=== PATIENT | female | born 1960 | race Caucasian/White ===

== ENCOUNTER 2023-12-22 06:00 | Outpatient (CLI) | payer MEDICAID, SELFPAY | END 2023-12-22 23:59 | disposition home or self-care (01) | LOC: SPT 12-23 11:35 | PROVIDERS: PCP Family Medicine; Visit Provider Student in an Organized Health Care Education/Training Program | DX: Z46.89 Encounter for fitting and adjustment of other specified devices (principal); M17.0 Bilateral primary osteoarthritis of knee | CPT/HCPCS: L1851; L1852 ==

== ENCOUNTER → 2023-12-22 12:58 | Outpatient (BNVA) | payer MEDICAID, SELFPAY | PROVIDERS: PCP Family Medicine; Visit Provider Student in an Organized Health Care Education/Training Program | DX: M17.0 Bilateral primary osteoarthritis of knee | CPT/HCPCS: 20610; 73560; 73565; 99204; J3301 ==

== ENCOUNTER 2024-01-25 08:30 | Outpatient (CLI) | payer MEDICAID, SELFPAY ==
--- NOTE | 2024-01-25 08:07 | USCV_ITS ---
Kian Renea Age: 64 Gender: F : 1960 Exam Date: 01/25/2024 08:17 Ordering Phys: Yogesh Rojas MD Technologist: CT Exam Location: [facility] [place] Indication: Risk Factors: Previous Vascular Surgery: Right Brachial BP: / Left Brachial BP: / Right Left Velocity (cm/s) Spectral Plaque Velocity (cm/s) Spectral Plaque Syst/Diast Broadening Syst/Diast Broadening 64.20/ 14.70 Prox CCA 102.70/ 25.50 83.30/ 18.40 Mid CCA 95.30 / 23.10 61.30/ 20.70 Distal CCA 65.10 / 19.80 74.90/ 27.40 Prox ICA 97.20 / 26.90 75.40/ 27.60 Mid ICA 58.80 / 23.90 71.30/ 27.10 Distal ICA 60.40 / 23.60 49.30 ECA 83.30 1.20 ICA/CCA 1.50 Antegrade Vertebral Antegrade 39.00/ 11.70 cm/s 48.20/ 16.50 cm/s Bi Subclavian Bi 86.70 59.80 CONCLUSIONS Intimal thickening in the common carotid arteries and internal carotid arteries bilaterally. Right ICA stenosis <50%. Moderate atheromatous plaque right carotid bulb/ICA. Left ICA stenosis <50%. Moderate atheromatous plaque left carotid bulb/ICA. Normal antegrade Doppler flow noted in the right vertebral artery. Normal antegrade Doppler flow noted in the left vertebral artery. Sergio Alvarado MD (Electronically Signed) Final Date: 25 January 2024 11:24 S
== END 2024-01-25 08:31 | disposition home or self-care (01) ==
PROVIDERS: PCP Family Medicine; Visit Provider Family Medicine
DX: I65.23 Occlusion and stenosis of bilateral carotid arteries (principal); I77.89 Other specified disorders of arteries and arterioles
CPT/HCPCS: 93880

== ENCOUNTER → 2024-08-07 08:45 | Outpatient (BNVA) | payer MEDICAID, SELFPAY | PROVIDERS: PCP Family Medicine; Visit Provider Student in an Organized Health Care Education/Training Program | DX: M17.0 Bilateral primary osteoarthritis of knee (principal) | CPT/HCPCS: 99213 ==

== ENCOUNTER 2024-09-16 11:48 | Emergency (ER) | payer MEDICARE, MEDICAID, SELFPAY ==
[2024-09-16] VITALS (14 sets, daily range): BP systolic 153–188; BP diastolic 86–104; PULSE 77–100; RESP 18–22; TEMP 36.7; O2SAT 89–99
--- NOTE | 2024-09-16 11:58 | XRR_ITS ---
PROCEDURE INFORMATION: Exam: XR Chest Exam date and time: 09/16/2024 12:22 PM Age: 64 years old Clinical indication: Cough TECHNIQUE: Imaging protocol: Radiologic exam of the chest. Views: 1 view. COMPARISON: No relevant prior studies available. FINDINGS: Lungs: Unremarkable. No consolidation. Pleural spaces: Unremarkable. No pleural effusion. No pneumothorax. Heart/Mediastinum: Unremarkable. No cardiomegaly. Bones/joints: Unremarkable. XR/XR chest 1V portable [id number] IMPRESSION: No acute cardiopulmonary process.
--- NOTE | 2024-09-16 12:00 | CTR_ITS ---
PROCEDURE INFORMATION: Exam: CT Head Without Contrast Exam date and time: 09/16/2024 11:00 AM Age: 64 years old Clinical indication: Stroke-like symptoms; Drowsines/somnolence and speech disturbance; Additional info: Symptoms of acute stroke TECHNIQUE: Imaging protocol: Computed tomography of the head without contrast. Radiation optimization: All CT scans at this facility use at least one of these dose optimization techniques: automated exposure control; mA and/or kV adjustment per patient size (includes targeted exams where dose is matched to clinical indication); or iterative reconstruction. Other technique: STROKE PROTOCOL was implemented. COMPARISON: No relevant prior studies available. RADIATION DOSE METRICS: Total DLP (mGy-cm): 802.08 FINDINGS: Brain: Mineralization of bilateral basal ganglia, age-related. No recent infarct, intracranial bleed or mass effect. Cerebral ventricles: No ventriculomegaly. Pituitary gland and sella: There is a normal empty pituitary sella. Paranasal sinuses: Visualized sinuses are unremarkable. No fluid levels. Mastoid air cells: Visualized mastoid air cells are well aerated. Orbital cavities: Post bilateral cataract surgery. Bones: Unremarkable. No acute fracture. Soft tissues: Unremarkable. CT/CT head thrombolytic [id number] IMPRESSION: No large territorial infarct or intracranial bleed. ASSESSMENT: ASPECTS ([place] Stroke Program Early CT Score) is 10.
--- NOTE | 2024-09-16 12:01 | PC.PHAR ---
Pt is from [facility]
[2024-09-16 12:23] LABS: Basophils % 0.3 %; Eosinophils # 0.1 10^3/uL (0.0-0.8); Eosinophils % 1.7 %; Hematocrit 38.9 % (36-47); Lymphocytes % 16.4 %; Mean Corpuscular HGB Conc 33.7 g/dL (30-55); Monocytes # 0.4 10^3/uL (0.2-0.9); Monocytes % 7.3 %; Neutrophils # 4.47 10^3/uL (1.8-7.7); Neutrophils % 74.1 %; Nucleated Red Blood Cells % 0 %; Platelet Count 206 10^3/cmm (157-399); Red Blood Count 3.97 10^6/uL (3.85-5.65); Red Cell Distribution Width 12.3 % (12.1-15.1); White Blood Count 6.03 10^3/uL (3.29-11.43)
[2024-09-16 12:25] LABS: Glucose Point of Care 90 mg/dL (70-110)
[2024-09-16 12:35] LABS: INR 0.77 (0.8-1.2)
[2024-09-16 12:36] LABS: Partial Thromboplastin Time 28.2 SECONDS (23.9-36.7)
--- NOTE | 2024-09-16 12:37 | ECG_ITS ---
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
[2024-09-16 12:39] LABS: Alanine Aminotransferase 20 U/L (0-33); Albumin Level 4.4 g/dL (3.5-5.2); Alkaline Phosphatase 87 U/L (35-105); Anion Gap 14.4 (5-19); Aspartate Amino Transferase 26 U/L (0-32); Blood Urea Nitrogen 17 mg/dL (8-23); Calcium 9.3 mg/dL (8.5-10.5); Carbon Dioxide 26 mmol/L (22-29); Chloride 103 mmol/L (98-107); Creatinine Clr Calc Pharmacy 66.8883; Globulin 2.6 g/dL (1.3-4.6); Glomerular Filtration Rate 55.8 mL/min (90-130); Glucose 83 mg/dL (65-115); Osmolality Calculated 289 mOsm/kg (285-295); Potassium 4.4 mmol/L (3.5-5.1); Sodium 139 mmol/L (136-145); Total Bilirubin 0.2 mg/dL (0.15-1.2)
[2024-09-16 12:40] LABS: Alcohol Level < 10 mg/dL (0-10)
--- NOTE | 2024-09-16 12:40 | W.ED.NEUROSD ---
HPI - Neuro Symptoms/Deficit General: Chief Complaint: Neuro Symptoms/Deficit Stated Complaint: stroke like symptoms at [facility] Time Seen by Provider: 09/16/24 11:50 History of Present Illness: This patient is a 64 year old presenting by EMS from a alf for stroke like symptoms. EMS was told that her symptoms started at 10:20 by the [facility] staff - but the patient says that she noted some slurred speech when she awoke this morning at 10 minutes after 6. She is very hungry - constantly asking for lunch and a soda. She says that she missed lunch and breakfast today. She denies headache, visual changes, trouble swallowing, chest pain, shortness of breath, fever. She admits to a dry cough because of being a smoker. She denies urinary symptoms or GI symptoms. She does seem somewhat confused and at times seems to have trouble understanding my questions. She is complaining of knee pain but it appears that is a chronic issue and she admits that it is unchanged today. Related Data Home Medications ?Medication ?Instructions ?Recorded ?Confirmed acetaminophen 325 mg capsule 325 mg PO QID PRN pain or fever 12/22/23 09/17/24 amitriptyline 50 mg tablet 50 mg PO BEDTIME 12/22/23 09/17/24 aspirin 81 mg tablet,delayed 81 mg PO DAILY 12/22/23 09/17/24 release (Adult Aspirin Regimen) atorvastatin 80 mg tablet 80 mg PO BEDTIME 12/22/23 09/17/24 buspirone 10 mg tablet 10 mg PO TID 08/07/24 09/17/24 clonazepam 0.5 mg tablet 0.5 mg PO QAM 08/07/24 09/17/24 diclofenac sodium 1 % topical gel 2 g topical Q6H PRN Pain 08/07/24 09/17/24 (Arthritis Pain (diclofenac)) docusate sodium 100 mg capsule 100 mg PO QAM 08/07/24 09/17/24 doxazosin 1 mg tablet 1 mg PO BEDTIME 08/07/24 09/17/24 fluticasone furoate 100 1 inh inhalation DAILY 08/07/24 09/17/24 mcg-vilanterol 25 mcg/dose inhalation powder (Breo Ellipta) gabapentin 600 mg tablet 600 mg PO TID 08/07/24 09/17/24 ibuprofen 800 mg tablet 800 mg PO TID 08/07/24 09/17/24 ipratropium bromide 17 2 puff inhalation BID 08/07/24 09/17/24 mcg/actuation HFA aerosol inhaler (Atrovent HFA) lamotrigine 100 mg tablet 100 mg PO QAM 08/07/24 09/17/24 magnesium hydroxide 400 mg/5 mL 30 ml PO BID PRN Constipation 08/07/24 09/17/24 oral suspension (Milk of Magnesia) melatonin 10 mg capsule 10 mg PO BEDTIME 08/07/24 09/17/24 paliperidone palm (3 month) 546 546 mg IM .[id number] 08/07/24 09/17/24 mg/1.75 mL intramuscular syringe (Invega Trinza) pantoprazole 40 mg granules 40 mg PO QAM 08/07/24 09/17/24 delayed-release for susp in packet (Protonix) cibwbqkd-aur-Ev-FA 1 mg 1 tab PO QAM 08/07/24 09/17/24 tablet sodium chloride 1,000 mg soluble 1,000 mg PO BID 08/07/24 09/17/24 tablet tizanidine 4 mg capsule (Zanaflex) 4 mg PO BID PRN Pain 08/07/24 09/17/24 triamcinolone acetonide 0.1 % 1 applic topical BID PRN eczema 08/07/24 09/17/24 topical ointment aluminum-mag hydroxide-simethicone 30 ml PO Q8H PRN indigestion/upset 09/16/24 09/17/24 400 mg-400 mg-40 mg/5 mL oral susp stomach (Mylanta Maximum Strength) menthol 2 % topical gel (Blue Gel) 1 applic topical Q6H PRN Pain 09/16/24 09/17/24 naloxone 1 mg/mL injection syringe 2 mg IM PRN PRN Opioid Overdose 09/16/24 09/17/24 sertraline 100 mg tablet 200 mg PO DAILY 09/16/24 09/17/24 Previous Rx's ?Medication ?Instructions ?Recorded 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 12/22/23 BRACE 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 12/22/23 BRACEDER aspirin 325 mg tablet 325 mg PO DAILY CV risk #30 tabs 09/16/24 Allergies Allergy/AdvReac Type Severity Reaction Status Date / Time acetaminophen (From Tylenol) Allergy unknowm Verified 09/17/24 08:09 codiene Allergy unknown Uncoded 09/17/24 08:09 geodon Allergy unknown Uncoded 09/17/24 08:09 [facility] ED PFSH: Social History Smoking and tobacco/nicotine status: current every day tobacco/nicotine user Marital status: NIH stroke score NIHSS: Level Of Consciousness - 1a: 0 Level Of Consciousness Questions - 1b: Both Correct Level Of Consciousness Commands - 1c: Both Correct Best Gaze - 2: Normal Visual Sams - 3: No Visual Loss Facial Palsy - 4: Normal Motor Arm Right - 5: No Drift Motor Arm Left - 5: No Drift Motor Leg Right - 6: No Drift Motor Leg Left - 6: No Drift Limb Ataxia - 7: Absent Sensory - 8: Normal Best Language - 9: No Aphasia Dysarthia - 10: Mild/Moderate Dysarthia Extinction And Inattention - 11: 0 Score: Total Score: 1 Physical Exam Const: COMMON NORMALS: no acute distress, patient oriented x3, no limitations and alert GENERAL APPEARANCE: cooperative and comfortable HENMT: HEAD & SCALP: normal to inspection FACE & SINUS: normal facial exam Eye: GENERAL EYE: appearance normal, both eyes and all related structures Neck/C-Spine: COMMON NORMALS: supple, no meningeal signs and no JVD Chest: COMMONS NORMALS: normal inspection of the chest Resp: COMMON NORMALS: normal respiratory effort, No use of accessory muscles and clear to auscultation bilaterally AUSCULTATION: clear to auscultation bilaterally Cardio: COMMON NORMALS: no JVD, regular rate, regular rhythm and No murmurs present (Cardio) RATE: regular rate RHYTHM: regular rhythm GI: COMMON NORMALS: Normal to inspection, nondistended, normoactive bowel sounds present, Soft to palpation and non-tender INSPECTION: Yes normal to inspection AUSCULTATION: Yes normoactive bowel sounds PALPATION: Yes Soft to palpation Back/Pelvis: COMMON NORMALS: thoracic and lumbar spine normal to inspection Extremity: COMMON NORMALS: normal to inspection Neuro: COMMON NORMALS: patient oriented x3, moves all extremities, no focal motor deficits and no sensory deficits noted SENSORIUM/ORIENTATION: Yes alert MENINGEAL SIGNS: Yes no meningeal signs Psych: COMMON NORMALS: mental status grossly normal, cooperative and normal affect Skin: COMMON NORMALS: no rashes or lesions noted and turgor normal GENERAL SKIN EXAM: no rashes or lesions noted and turgor normal Course Vital Signs: Vital signs: Vital Signs Temperature 98.0 F 09/16/24 11:59 Pulse Rate 98 09/16/24 16:52 Respiratory Rate 18 09/16/24 14:00 Blood Pressure 153/90 09/16/24 16:52 Pulse Oximetry 91 09/16/24 16:52 Oxygen Delivery Me thod Room Air 09/16/24 11:59 MDM - Neuro Symptoms/Deficit Medical Decision Making NIHSS of 1 for slurred speech. She seems a bit confused at times, but is able to answer questions and follow commands. A stroke alert was called - but given the low NIHSS and uncertain onset time - she is not a good candidate for TNK or TPA. The patient soon decided that she wanted to go home and was up and walking around the ED without difficulty. I spoke on the phone with her guardian who agreed that she should stay for a work up. The patient was noted to have a UTI. It is possible that she had a TIA but she does not wish to stay in the hospital and I think she can get an outpatient work up for TIA. She was increased to a full dose of aspirin daily and started on macrobid for her UTI. Lab Data 09/16/24 12:18 09/16/24 12:18 Radiology Impressions Chest X-Ray 09/16/24 11:58 IMPRESSION: No acute cardiopulmonary process. Head CT 09/16/24 12:00 IMPRESSION: No large territorial infarct or intracranial bleed. ASSESSMENT: ASPECTS ([place] Stroke Program Early CT Score) is 10. ADDENDUM: 09/16/24 1226 THIS REPORT CONTAINS FINDINGS THAT MAY BE CRITICAL TO PATIENT CARE. As of 12:25 PM CDT on 09/16/2024 operations center staff confirmed that CRISPIN CABRERA has received the exam report and indicated that no conference call was necessary to discuss the exam findings. Laboratory Results WBC 6.03 10^3/uL (3.29-11.43) 09/16/24 12:18 RBC 3.97 10^6/uL (3.85-5.65) 09/16/24 12:18 Hgb 13.10 g/dL (11.27-16.99) 09/16/24 12:18 Hct 38.9 % (36-47) 09/16/24 12:18 MCV 98.0 fl (85-98) 09/16/24 12:18 MCH 33.0 pg (27-33) 09/16/24 12:18 MCHC 33.7 g/dL (30-55) 09/16/24 12:18 RDW 12.3 % (12.1-15.1) 09/16/24 12:18 Plt Count 206 10^3/cmm (157-399) 09/16/24 12:18 MPV 9.0 fL (7.4-10.4) 09/16/24 12:18 Neut % (Auto) 74.1 % 09/16/24 12:18 Lymph % (Auto) 16.4 % 09/16/24 12:18 [place]uthrie % (Auto) 7.3 % 09/16/24 12:18 Eos % (Auto) 1.7 % 09/16/24 12:18 Baso % (Auto) 0.3 % 09/16/24 12:18 Neut # (Auto) 4.47 10^3/uL (1.8-7.7) 09/16/24 12:18 Lymph # (Auto) 1.0 10^3/uL (0.8-4.8) 09/16/24 12:18 Guthrie # (Auto) 0.4 10^3/uL (0.2-0.9) 09/16/24 12:18 Eos # (Auto) 0.1 10^3/uL (0.0-0.8) 09/16/24 12:18 Baso # (Auto) 0.0 10^3/uL (0.0-0.1) 09/16/24 12:18 Nucleated RBC % (auto) 0 % 09/16/24 12:18 Nucleated RBCs # 0.0 /100WBC 09/16/24 12:18 PT 11.30 SECONDS (12.1-14.9) L 09/16/24 12:18 INR 0.77 (0.8-1.2) L 09/16/24 12:18 APTT 28.2 SECONDS (23.9-36.7) 09/16/24 12:18 Sodium 139 mmol/L (136-145) 09/16/24 12:18 Potassium 4.4 mmol/L (3.5-5.1) 09/16/24 12:18 Chloride 103 mmol/L (98-107) 09/16/24 12:18 Carbon Dioxide 26 mmol/L (22-29) 09/16/24 12:18 Anion Gap 14.4 (5-19) 09/16/24 12:18 BUN 17 mg/dL (8-23) 09/16/24 12:18 Creatinine 1.0 mg/dL (0.5-0.9) H 09/16/24 12:18 GFR Calculation 55.8 mL/min (90-130) L 09/16/24 12:18 Glucose 83 mg/dL (65-115) 09/16/24 12:18 POC Glucose 90 mg/dL (70-110) 09/16/24 12:10 Calculated Osmolality 289 mOsm/kg (285-295) 09/16/24 12:18 Calcium 9.3 mg/dL (8.5-10.5) 09/16/24 12:18 Total Bilirubin 0.2 mg/dL (0.15-1.2) 09/16/24 12:18 AST 26 U/L (0-32) 09/16/24 12:18 ALT 20 U/L (0-33) 09/16/24 12:18 Alkaline Phosphatase 87 U/L (35-105) 09/16/24 12:18 Total Protein 7.0 g/dL (6.6-8.7) 09/16/24 12:18 Albumin 4.4 g/dL (3.5-5.2) 09/16/24 12:18 Globulin 2.6 g/dL (1.3-4.6) 09/16/24 12:18 Urine Color Yellow (Yellow) 09/16/24 14:35 Urine Appearance Clear (CLEAR) 09/16/24 14:35 Urine pH 5.5 (5-7) 09/16/24 14:35 Ur Specific [place] 1.009 (1.005-1.030) 09/16/24 14:35 Urine Protein Negative (Negative) 09/16/24 14:35 Urine Glucose (UA) Negative (Normal) 09/16/24 14:35 Urine Ketones Negative (Negative) 09/16/24 14:35 Urine Blood Negative (Negative) 09/16/24 14:35 Urine Nitrate Positive (Negative) A 09/16/24 14:35 Urine Bilirubin Negative (Negative) 09/16/24 14:35 Urine Urobilinogen 0.2 mg/dL (Negative) 09/16/24 14:35 Ur Leukocyte Esterase Trace (Negative) A 09/16/24 14:35 Urine RBC 0-2 /hpf (0-2) 09/16/24 14:35 Urine WBC 6-10 /hpf (0-5) 09/16/24 14:35 Ur Squamous Epith Cells 0-5 /hpf (0-5) 09/16/24 14:35 Amorphous Sediment Not Reportable 09/16/24 14:35 Urine Bacteria 4+ /hpf (NONE) H 09/16/24 14:35 Hyaline Casts 0.81 /lpf 09/16/24 14:35 Urine Opiates Screen Negative ng/mL (Negative) 09/16/24 14:35 Ur Barbiturates Screen Negative ng/mL (Negative) 09/16/24 14:35 Ur Phencyclidine Scrn Negative ng/mL (Negative) 09/16/24 14:35 Ur Amphetamines Screen Negative ng/mL (Negative) 09/16/24 14:35 U Benzodiazepines Scrn Negative ng/mL (Negative) 09/16/24 14:35 Urine Cocaine Screen Negative ng/mL (Negative) 09/16/24 14:35 U Marijuana (THC) Screen Negative ng/mL (Negative) 09/16/24 14:35 Ethyl Alcohol < 10 mg/dL (0-10) 09/16/24 12:18 All radiology interpretation(s) finalized by discharge Discharge Plan Discharge Patient Disposition: Home Clinical Impression: Acute confusion, UTI (urinary tract infection) Condition: Stable Prescriptions: New aspirin 325 mg tablet 325 mg PO DAILY Qty: 30 0RF No Action Atrovent HFA 17 mcg/actuation HFA aerosol inhaler 2 puff inhalation BID fluticasone furoate-vilanterol [Breo Ellipta] 100-25 mcg/dose blister with device 1 inh inhalation DAILY buspirone 10 mg tablet 10 mg PO TID clonazepam 0.5 mg tablet 0.5 mg PO QAM diclofenac sodium [Arthritis Pain (diclofenac)] 1 % gel 2 g topical Q6H PRN (Reason: Pain) Rx Instructions: apply to single elbow, wrist or hand; for hand includes palm/fingers/back of hand docusate sodium 100 mg capsule 100 mg PO QAM doxazosin 1 mg tablet 1 mg PO BEDTIME gabapentin 600 mg tablet 600 mg PO TID ibuprofen 800 mg tablet 800 mg PO TID Invega Trinza 546 mg/1.75 mL syringe 546 mg IM .[id number] lamotrigine 100 mg tablet 100 mg PO QAM melatonin 10 mg capsule 10 mg PO BEDTIME magnesium hydroxide [Milk of Magnesia] 400 mg/5 mL suspension 30 ml PO BID PRN (Reason: Constipation) puipdyai-fcc-Ic-FA 1 mg tablet 1 tab PO QAM pantoprazole [Protonix] [address] for susp in packet 40 mg PO QAM sodium chloride 1,000 mg tablet,soluble 1,000 mg PO BID triamcinolone acetonide 0.1 % ointment 1 applic topical BID PRN (Reason: eczema) tizanidine [Zanaflex] 4 mg capsule 4 mg PO BID PRN (Reason: Pain) acetaminophen 325 mg capsule 325 mg PO QID MDD 3g PRN (Reason: pain or fever) amitriptyline 50 mg tablet 50 mg PO BEDTIME aspirin [Adult Aspirin Regimen] 81 mg tablet,delayed release (DR/EC) 81 mg PO DAILY atorvastatin 80 mg tablet 80 mg PO BEDTIME (DME) 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 See Rx Instructions .Route .MEDSUPPLY Qty: 1 0RF Rx Instructions: As directed (DME) 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 See Rx Instructions .Route .MEDSUPPLY Qty: 1 0RF Rx Instructions: As directed menthol [Blue Gel] 2 % Gel 1 applic TOPICAL Q6H PRN (Reason: Pain) sertraline 100 mg tablet 200 mg PO DAILY alum-mag hydroxide-simeth [Mylanta Maximum Strength] 400-400-40 mg/5 mL Suspension 30 ml PO Q8H PRN (Reason: indigestion/upset stomach) naloxone [Narcan] 1 mg/mL Syringe 2 mg IM PRN PRN (Reason: Opioid Overdose) Rx Instructions: NTExceed 10 mg total dose/episode Discharge Orders: Discharge ED (Routine); Ordered 09/16/24 Ordered By: Crispin Cabrera Referrals: Star Cook DO [Primary Care Provider] - 1-3 days Discharge Diet: Usual diet Discharge Activity: Resume usual activity Patient Instructions: Opioid Safety, Pain Management Activity Restrictions/Additional Instructions: Increase the daily aspirin from 81 mg to 325 mg to help decrease risk of stroke. Return to the ED if any further symptoms of confusion, speech difficulty, weakness or numbness occur. Follow up with your PCP for further outpatient evaluation of this episode. Print Language: Bulgarian Coding Level of Care Code ED Completion Supervisor for Tiera Swenson
--- NOTE | 2024-09-16 14:48 | PC.NURSE ---
when attemping to straight cath patient, she states 'you could have got urine 2 hours ago', this RN informed the patient that she has been going in between 3 other rooms and is getting things done as fast as she can. pt was unhooking herself from vitals monitor and states 'im not wearing that, i feel tied down.' pt educated on the importance of needing monitoring. pt ambulated to the bathroom without assistive devices, with steady gait. when returning back to the room, pt still refused to wear monitor. provider notified. pt requesting a sandwich and soda, provider okayed.
[2024-09-16 14:55] LABS: Bilirubin Urine Negative (Negative); Blood Urine Negative (Negative); Glucose Urine UA Negative (Normal); Ketones Urine Negative (Negative); Leukocyte Esterase Urine Trace (Negative); Nitrate Urine Positive (Negative); Protein Urine Negative (Negative); Specific Gravity, Urine 1.009 (1.005-1.030); Urine Appearance Clear (CLEAR); Urine Color Yellow (Yellow); Urobilinogen Urine 0.2 mg/dL (Negative); pH Urine 5.5 (5-7)
[2024-09-16 15:00] LABS: Add Urine Microscopic? YES; Bacteria Urine 4+ /hpf; Hyaline Casts Urine 0.81 /lpf; RBC Urine 0-2 /hpf (0-2); Squamous Epithelial Cell Urine 0-5 /hpf (0-5)
[2024-09-16 15:02] LABS: Add Urine Culture? Yes; Amphetamines Screen Urine Negative (Negative); Barbiturates Screen Urine Negative (Negative); Benzodiazepines Screen Urine Negative (Negative); Cocaine Screen Urine Negative (Negative); Opiate Screen Urine Negative (Negative); PCP Screen Urine Negative (Negative); THC Screen Urine Negative (Negative)
[2024-09-16] MEDS: nitrofurantoin SR (BID) 100 mg Capsule PO (15:38)
== END 2024-09-16 16:45 | disposition home or self-care (01) ==
PROVIDERS: Emergency Provider Emergency Medicine; PCP Internal Medicine
DX: R41.0 Disorientation, unspecified (principal); N39.0 Urinary tract infection, site not specified; Z79.82 Long term (current) use of aspirin; Z72.0 Tobacco use
CPT/HCPCS: 36415; 36416; 70450; 71045; 80053; 80306; 80307; 81001; 82962; 85025; 85610; 85730; 87077; 87086; 87186; 93005; 99285; J9999

== ENCOUNTER → 2024-09-17 08:00 | Outpatient (BNVA) | payer MEDICARE, MEDICAID, SELFPAY | PROVIDERS: PCP Internal Medicine; Visit Provider Podiatrist Foot & Ankle Surgery | DX: M79.671 Pain in right foot (principal); M79.672 Pain in left foot; L60.3 Nail dystrophy; M21.611 Bunion of right foot; M21.612 Bunion of left foot | CPT/HCPCS: 73630; 99203 ==

== ENCOUNTER → 2025-01-01 07:53 | Outpatient (BNVA) | payer MEDICARE, MEDICAID, SELFPAY | PROVIDERS: PCP Internal Medicine; Visit Provider Student in an Organized Health Care Education/Training Program | DX: M17.0 Bilateral primary osteoarthritis of knee (principal); M25.561 Pain in right knee; M25.562 Pain in left knee | CPT/HCPCS: 20610; 73560; 73565; 99213; J3301; J9999 ==

== ENCOUNTER → 2025-04-02 07:44 | Outpatient (BNVA) | payer MEDICARE, MEDICAID, SELFPAY | PROVIDERS: PCP Internal Medicine; Visit Provider Student in an Organized Health Care Education/Training Program | DX: M17.0 Bilateral primary osteoarthritis of knee (principal) | CPT/HCPCS: 99213 ==

== ENCOUNTER → 2025-05-07 10:32 | Outpatient (BNVA) | payer MEDICARE, MEDICAID, SELFPAY | PROVIDERS: PCP Internal Medicine; Visit Provider Student in an Organized Health Care Education/Training Program | DX: M17.0 Bilateral primary osteoarthritis of knee (principal); Z71.89 Other specified counseling | CPT/HCPCS: 20610; 99213; J7318 ==

== ENCOUNTER → 2025-05-09 07:01 | Outpatient (BNVA) | payer MEDICARE, MEDICAID, SELFPAY | PROVIDERS: PCP Internal Medicine; Visit Provider Podiatrist Foot & Ankle Surgery | DX: M21.611 Bunion of right foot (principal); M21.612 Bunion of left foot; L60.3 Nail dystrophy | CPT/HCPCS: 99213 ==